=== PATIENT | male | born 1990 | race Hispanic/Latino ===

== ENCOUNTER 2020-04-08 12:09 | Emergency (ER) | payer SELFPAY ==
[2020-04-08] MEDS ORDERED: Sodium Chloride 0.9% 10 ML Syringe FLUSH PRN (12:22)
[2020-04-08] MEDS ORDERED: Ketorolac 30 MG/ML SDV IVPUSH ONE (12:30)
[2020-04-08] MEDS ORDERED: Aspirin 81 MG Tab.Chew PO ONE (12:30)
--- NOTE | 2020-04-08 13:00 | EDM.PDOC ---
ED HPI GENERAL MEDICAL PROBLEM - General Chief Complaint: Chest Pain Stated Complaint: CHEST PAIN Time Seen by Provider: 04/08/20 12:17 Source of Information: Reports: Patient History Limitations: Reports: No Limitations - History of Present Illness INITIAL COMMENTS - FREE TEXT/NARRATIVE: Patient is a 30-year-old male who presents to the emergency department with complaints of left lower chest pain. States symptoms initially began last night while he was lying down. Symptoms had resolved upon waking this morning, however have gradually returned. States it is been a couple hours since his symptoms returned. He describes it as a sharp pain in his lower left chest. Pain is significantly worse with deep breathing. He denies any shortness of breath, diaphoresis, or radiation of pain to his neck or arms. He does not have a history of GERD and does not feel like he has acid reflux at this time. He has not done any abnormally strenuous activity such as heavy lifting that may have precipitated the pain. He is otherwise healthy. Has not taken any medications to treat the discomfort. Middle Chest Pain Score (Numeric/FACES): 7 - Related Data Allergies Allergy/AdvReac Type Severity Reaction Status Date / Time No Known Allergies Allergy Verified 04/08/20 12:21 Home Meds: Home Meds Naproxen [Naprosyn] 500 mg PO Q12HR 5 Days #10 tab 04/08/20 [Rx] Past Medical History - Past Health History Medical/Surgical History: Denies Medical/Surgical History Social & Family History - Family History Family Medical History: Noncontributory - Tobacco Use Years of Tobacco use: 2 Packs/Tins Daily: 0.1 - Caffeine Use Caffeine Use: Reports: Coffee - Recreational Drug Use Recreational Drug Use: No ED ROS GENERAL - Review of Systems Review Of Systems: See Below Constitutional: Reports: No Symptoms. Denies: Fever, Chills, Weakness HEENT: Reports: No Symptoms Respiratory: Reports: No Symptoms. Denies: Shortness of Breath, Cough Cardiovascular: Reports: Chest Pain. Denies: Lightheadedness, Palpitations Endocrine: Reports: No Symptoms GI/Abdominal: Reports: No Symptoms. Denies: Abdominal Pain, Nausea, Vomiting : Reports: No Symptoms Musculoskeletal: Reports: No Symptoms Skin: Reports: No Symptoms Neurological: Reports: No Symptoms Psychiatric: Reports: No Symptoms Hematologic/Lymphatic: Reports: No Symptoms Immunologic: Reports: No Symptoms ED EXAM, GENERAL - Physical Exam Exam: See Below Exam Limited By: No Limitations General Appearance: Alert, WD/WN, No Apparent Distress Respiratory/Chest: No Respiratory Distress, Lungs Clear, Normal Breath Sounds, No Accessory Muscle Use, Chest Non-Tender Cardiovascular: Normal Peripheral Pulses, Regular Rate, Rhythm, No Edema, No Gallop, No JVD, No Murmur, No Rub GI/Abdominal: Normal Bowel Sounds, Soft, Non-Tender, No Organomegaly, No Distention, No Abnormal Bruit, No Mass Neurological: Alert, Oriented, CN II-XII Intact, Normal Cognition, Normal Gait, Normal Reflexes, No Motor/Sensory Deficits Psychiatric: Normal Affect, Normal Mood Skin Exam: Warm, Dry, Intact, Normal Color, No Rash Course - Vital Signs Last Recorded V/S: Last Vital Signs Temp 98.0 F 04/08/20 12:16 Pulse 84 04/08/20 13:49 Resp 18 04/08/20 13:49 BP 128/70 04/08/20 13:49 Pulse Ox 98 04/08/20 13:49 - Orders/Labs/Meds Orders: Active Orders 24 hr Category Date Time Status EKG Documentation Completion [RC] STAT Care 04/08/20 12:22 Active Peripheral IV Care [RC] . DIRECTED Care 04/08/20 12:22 Active Sodium Chloride 0.9% [Saline Flush] Med 04/08/20 12:22 Active 10 ml FLUSH ASDIRECTED PRN Peripheral IV Insertion Adult [OM.PC] Stat Oth 04/08/20 12:22 Ordered Medication Orders Sodium Chloride (Saline Flush) 10 ml FLUSH ASDIRECTED PRN PRN Reason: Keep Vein Open Last Admin: 04/08/20 13:00 Dose: 10 ml Documented by: RUT Labs: Laboratory Tests 04/08/20 04/08/20 04/08/20 Range/Units 12:33 12:33 12:33 WBC 10.81 H (4.23-9.07) K/mm3 RBC 5.60 (4.63-6.08) M/mm3 Hgb 14.2 (13.7-17.5) gm/dl Hct 44.4 (40.1-51.0) % MCV 79.3 (79.0-92.2) fl MCH 25.4 L (25.7-32.2) pg MCHC 32.0 L (32.2-35.5) g/dl RDW Std Deviation 41.6 (35.1-43.9) fL Plt Count 392 H (163-337) K/mm3 MPV 9.5 (9.4-12.3) fl Neut % (Auto) 58.1 (34.0-67.9) % Lymph % (Auto) 28.5 (21.8-53.1) % Ralls % (Auto) 10.8 (5.3-12.2) % Eos % (Auto) 1.9 (0.8-7.0) Baso % (Auto) 0.2 (0.1-1.2) % Neut # (Auto) 6.28 H (1.78-5.38) K/mm3 Lymph # (Auto) 3.08 (1.32-3.57) K/mm3 Ralls # (Auto) 1.17 H (0.30-0.82) K/mm3 Eos # (Auto) 0.21 (0.04-0.54) K/mm3 Baso # (Auto) 0.02 (0.01-0.08) K/mm3 D-Dimer, Quantitative < 0.19 L (0.19-0.50) mg/L Sodium 140 (136-145) mEq/L Potassium 3.9 (3.5-5.1) mEq/L Chloride 100 (98-107) mEq/L Carbon Dioxide 30 (21-32) mEq/L Anion Gap 13.9 (5-15) BUN 13 (7-18) mg/dL Creatinine 1.1 (0.7-1.3) mg/dL Est Cr Clr Drug Dosing 103.23 mL/min Estimated GFR (MDRD) > 60 (>60) mL/min BUN/Creatinine Ratio 11.8 L (14-18) Glucose 93 (74-106) mg/dL Calcium 9.3 (8.5-10.1) mg/dL Total Bilirubin 0.3 (0.2-1.0) mg/dL AST 20 (15-37) U/L ALT 42 (16-63) U/L Alkaline Phosphatase 61 (46-116) U/L Troponin I < 0.017 (0.00-0.056) ng/mL C-Reactive Protein 2.0 H* (<1.0) mg/dL Total Protein 8.4 H (6.4-8.2) g/dl Albumin 4.3 (3.4-5.0) g/dl Globulin 4.1 gm/dL Albumin/Globulin Ratio 1.1 (1-2) Meds: Medications Generic Name Dose Route Start Last Admin Trade Name Ruby PRN Reason Stop Dose Admin Sodium Chloride 10 ml 04/08/20 12:22 04/08/20 13:00 Saline Flush FLUSH 10 ml ASDIRECTED PRN Administration Keep Vein Open Discontinued Medications Generic Name Dose Route Start Last Admin Trade Name Freq PRN Reason Stop Dose Admin Aspirin 324 mg 04/08/20 12:30 04/08/20 12:59 Aspirin PO 04/08/20 12:31 324 mg ONETIME ONE Administration Ketorolac Tromethamine 30 mg 04/08/20 12:30 04/08/20 13:00 Toradol IVPUSH 04/08/20 12:31 30 mg ONETIME ONE Administration - Re-Assessments/Exams Free Text/Narrative Re-Assessment/Exam: 04/08/20 14:17 Patient's hematology was found to be grossly unremarkable. D-dimer was negative, troponin was negative. Chest x-ray showed some slight atelectasis in the left side but was otherwise normal. EKG was normal patient did have some relief from his symptoms with the Toradol given. Discussed with the patient that the pain in his chest wall is likely musculoskeletal in nature. Will write a prescription for Naprosyn. Discharge instructions as documented. Departure - Departure Time of Disposition: 14:18 Disposition: Home, Self-Care 01 Condition: Good Clinical Impression: Atypical chest pain Prescriptions: Naproxen [Naprosyn] 500 mg PO Q12HR 5 Days #10 tab Instructions: Chest Wall Pain, [id number] Referrals: PCP,None [Primary Care Provider] - Forms: ED Department Discharge Additional Instructions: You were seen in the emergency department today for left-sided chest pain worse with breathing. Your work-up included blood work, chest x-ray, and an EKG of your heart. Your work-up was found to be normal. You are not having a heart attack, there is no blood clot in your lungs. As we discussed, the cause of your chest pain is likely musculoskeletal in nature. A prescription for Napr osyn has been sent to [facility]. Uses medication as prescribed. He may also apply heat directly to your chest wall for comfort. If you should experience any new or worsening symptoms of concern, please do not hesitate to return to the emergency department. Sepsis Event Note (ED) - Evaluation Sepsis Screening Result: No Definite Risk - Focused Exam Vital Signs: Vital Signs Temp Pulse Resp BP Pulse Ox 04/08/20 13:49 84 18 128/70 98 04/08/20 13:23 82 18 125/72 98 04/08/20 12:16 98.0 F 83 16 138/79 - My Orders Last 24 Hours: My Active Orders 04/08/20 12:22 EKG Documentation Completion [RC] STAT Peripheral IV Care [RC] . DIRECTED Sodium Chloride 0.9% [Saline Flush] 10 ml FLUSH ASDIRECTED PRN Peripheral IV Insertion Adult [OM.PC] Stat - Assessment/Plan Last 24 Hours: My Active Orders 04/08/20 12:22 EKG Documentation Completion [RC] STAT Peripheral IV Care [RC] . DIRECTED Sodium Chloride 0.9% [Saline Flush] 10 ml FLUSH ASDIRECTED PRN Peripheral IV Insertion Adult [OM.PC] Stat
--- NOTE | 2020-04-08 13:12 | CR ---
Chest: 2 views of the chest were obtained. Comparison: No prior chest imaging. Slight atelectasis is felt to be present within the left lateral costophrenic angle. Lungs otherwise are clear. Heart size and mediastinum are normal. Bony structures are unremarkable. Impression: 1. Slight atelectasis within the lateral left costophrenic angle. 2. Nothing acute is otherwise seen on 2 view chest x-ray. Diagnostic code #2 This report was dictated in [facility]T
== END 2020-04-08 14:35 | disposition home or self-care (01) ==
LOC: JD.ED 12:09
DX: R07.89 Other chest pain (principal); F17.290 Nicotine dependence, other tobacco product, uncomplicated
CPT/HCPCS: 36415; 71046; 80053; 84484; 85025; 85379; 86140; 93005; 96374; 99285; A9270; J1885